=== PATIENT | female | born 1960 | race Caucasian/White ===

== ENCOUNTER → 2021-07-30 10:24 | Outpatient (CLI) | payer OTHER, SELFPAY ==
[2021-07-30 13:50] LABS: COVID19 -Nasal RAPID Negative (Negative)
== END ==
PROVIDERS: Visit Provider Nurse Practitioner Family
DX: Z20.822 Contact with and (suspected) exposure to COVID-19 (principal)
CPT/HCPCS: 87635; C9803

== ENCOUNTER 2021-08-02 09:02 | Day surgery (SDC) | payer OTHER, SELFPAY ==
--- NOTE | 2021-08-02 | PATH_ITS ---
[facility] Accession Number: [id number] . 01 Material submitted: . rectum - RECTAL POLYPS . 02 Diagnosis: Rectal Polyps, Biopsies: Fragments of hyperplastic polyp. Negative for dysplasia or malignancy. MRV 08/05/2021 1156 Local . 02 Electronically signed: . Alejo Escudero MD, PhD, Pathologist NPI- [id number] . 01 Gross description: . RECTAL POLYPS: Received in formalin are 4 fragment(s) of neely, soft tissue measuring 0.4 x 0.1 x 0.1 cm to 0.2 x 0.1 x 0.1 cm submitted entirely in 1 cassette(s) /CPE 08/04/2021 0955 Local . 02 Pathologist provided ICD-10: K62.1 . 02 CPT . 561270 Specimen Comment: A courtesy copy of this report has been sent to [phone] Performed at: 01 [facility] Cyt[facility] [address] [facility], [place], [place] [id number] MD Perez Blair MD Phone: [phone] Performed at: 02 [facility] [place] [address] [place], [place] [id number] MD Mila Kay MD Phone: [phone]
[2021-08-02 09:40] VITALS: BP 185/88; PULSE 59; RESP 18; TEMP 36.5; O2SAT 98
[2021-08-02 09:42] VITALS: BMI 33.3
[2021-08-02] MEDS: SODIUM CHLORIDE 0.9% 1,000 ML 84 ML IV (10:00)
--- NOTE | 2021-08-02 10:44 | PM.HP.1 ---
History of Present Illness History of Present Illness Date Patient Seen: 08/02/21 Time Patient Seen: 10:44 Chief complaint: SDC Narrative: I reviewed the note from Dr. Atkins from June 30. No significant changes. Patient History Medical History Constipation Cystitis History of colon polyps Hypertension Obesity Sleep apnea Surgical History H/O toe surgery History of bladder surgery History of cholecystectomy History of colonoscopy History of tonsillectomy Family & Social History Social History: household members spouse Tobacco & Substance use: Smoking Status Never smoker alcohol intake current alcohol intake frequency other Substance Use Type does not use Meds Home Medications and Allergies Home Medications Medication Instructions Recorded Confirmed Type amlodipine 10 mg tablet 5 mg PO DAILY 08/02/21 08/02/21 History hydrochlorothiazide 12.5 mg PO DAILY 08/02/21 08/02/21 History olmesartan 20 mg PO DAILY 08/02/21 08/02/21 History Allergies Allergy/AdvReac Type Severity Reaction Status Date / Time hydrocodone [From Vicodin] AdvReac Mild Nausea Verified 08/02/21 09:33 Review of Systems Review of Systems ROS: Yes All systems reviewed with the patient and are negative except as otherwise documented Exam Vital Signs (past 8 hours): - 08/02/21 09:40 Temperature 97.7 F Pulse Rate 59 L Respiratory Rate 18 Blood Pressure 185/88 H Pulse Oximetry 98 Oxygen Delivery Method Room Air Const General: cooperative and comfortable Orientation: alert HENMT Head: normocephalic Ears: external ears normal Nose: external nose normal Face and sinus: normal facial exam Mouth: oral mucosae normal Eyes General: appearance normal, both eyes and all related structures Neck Neck: normal visual inspection Chest Chest: normal inspection of the chest Resp Effort & Inspection: normal respiratory effort Cardio Rate: regular rate GI Inspection: normal to inspection Skin General: no rashes or lesions noted and No jaundice Neuro General: patient alert and moves all extremities Cognition: normal cognition Speech: speech normal Extrem General: no pedal edema Psych Appearance: grossly normal Assessment & Plan Assessment & Plan narrative: Family history of colon cancer, personal history of colon polyps, personal history of constipation. Colonoscopy is planned for today. Time Spent With Patient Critical Care time: I spent a total of [] minutes of critical care time on this patient's care today; this time is exclusive of procedural time.
--- NOTE | 2021-08-02 10:47 | PM.PREOP ---
Pre-operative Note COVID-19 COVID-19 status: Negative Result date/Date tested (Pos, Neg/Pending): 07/30/21 Criteria for continued procedure: Possibility delay results in more complex future surgery or treatment Interval Note History & Physical reviewed/Exam performed by Physician: Yes Changes to H&P: No ASA Class (for procedural sedation): II
--- NOTE | 2021-08-02 11:58 | P.OP.COLON_ITS ---
Operative Date/Time/Diagnoses Date of procedure: 08/02/21 Time of procedure: 11:58 Pre-op diagnosis: Constipation, family history of colon cancer, personal history of colon polyps. Post-op diagnosis: same Procedure & Clinicians Study performed: Colonoscopy with cold snare polypectomy and cold forceps polypectomy Same procedure as scheduled: Yes Indications: Constipation family history of colon cancer, personal history of colon polyps Surgeon: Rafiq Meraz Procedure Notes SCOAP/Timeout: Done Procedure in detail: After the risks and benefits were explained, written and verbal informed consent was obtained. The patient was brought into the procedure room and placed into the left lateral decubitus position. Please see nurse integrated marketing specialist notes for sedation details. Digital rectal examination was accomplished. The scope was introduced into the patient and advanced under direct visualization to the cecum as identified by the appendiceal orifice and ileocecal valve. The scope was slowly withdrawn to carefully examine the mucosa for any defects or lesions. Comprehensive imaging was accomplished throughout the rectum including the dentate line. The colon was decompressed, the scope was then removed from the patient who tolerated the procedure well. Bowel prep fair Pediatric colonoscope Scope withdrawal time: 15 minutes Sedation minutes: 24 Complications: none Impression: Patient had some diverticulosis in the left colon. No proctitis no colitis throughout. There were a couple of small polyps 4-5 mm in size found in the rectum. One of these was removed with cold forceps and the other with cold snare. No additional pathology was appreciated. Endoscopic diagnosis 1. Diverticulosis 2. Colon polyps Post-procedure Plan for aftercare: 1. Await histopathology 2. Repeat colonoscopy 5 years considering family history and personal history. Disposition: PACU
[2021-08-02 12:00] VITALS: BP 132/69; PULSE 57; RESP 12; TEMP 36.2; O2SAT 96
[2021-08-02 12:05] VITALS: BP 145/67; PULSE 56; RESP 12; O2SAT 96
[2021-08-02 12:15] VITALS: BP 160/65; PULSE 55; RESP 16; TEMP 36.4; O2SAT 99
[2021-08-02 12:27] VITALS: BP 124/79; PULSE 60; RESP 12; O2SAT 97
== END 2021-08-02 12:35 | disposition home or self-care (01) ==
PROVIDERS: PCP Physician Assistant; Referring Provider Internal Medicine Gastroenterology; Visit Provider Internal Medicine Gastroenterology
PROC: 0DJD8ZZ Inspection of Lower Intestinal Tract, Via Natural or Artificial Opening Endoscopic (ICD-10-PCS; CPT 45378; principal; 2021-08-02 10:30)
DX: K59.00 Constipation, unspecified (principal); Z80.0 Family history of malignant neoplasm of digestive organs; Z86.010 Personal history of colon polyps; K57.30 Diverticulosis of large intestine without perforation or abscess without bleeding; K62.1 Rectal polyp
CPT/HCPCS: 45385; 45380; J2704